=== PATIENT | male | born 1980 | race Caucasian/White ===

== ENCOUNTER 2021-12-31 20:23 | Emergency (ER) | payer BC, OTHER, SELFPAY ==
[2021-12-31 20:24] VITALS: BP 140/93; PULSE 97; RESP 16; TEMP 36.4; O2SAT 100; BMI 39.1
[2021-12-31 21:36] VITALS: BP 142/86; PULSE 81; RESP 16; O2SAT 97
--- NOTE | 2021-12-31 21:46 | ED.RN ---
L hand cleaned with saline and ori hex and then irrigated with NS and left to air dry while awaiting MD.
--- NOTE | 2021-12-31 23:31 | EX.ED.UPPERE ---
HPI History of Present Illness Chief Complaint: Laceration Informant: patient Narrative Narrative: Patient is a 41-year-old male present with laceration to his left third and fourth fingers. Patient is right-hand dominant. He states he was trying to loosen a bolt on a machine using a monkey wrench when his hand slipped and he cut his hand on another tool that was below it. He immediately had bleeding. He denies any other injuries. Denies any numbness, tingling or weakness. This did happen at work and is a Workmen's Compensation case. No other complaints at this time. Is not on any blood thinners. Tetanus Immunization: Unknown [facility] Home Medications NK 12/31/21 [History Last Taken Unknown] Allergy/AdvReac Type Severity Reaction Status Date / Time azithromycin AdvReac Abd Verified 12/31/21 20:26 cramps/diarrhea Social History Smoking Status: Current every day smoker tobacco type: cigarettes ROS ROS ED Constitutional Constitutional ED: Denies chills or fever(s) Eyes Eyes: Denies change in vision Cardiovascular Cardiovascular: Denies chest pain Respiratory/Chest Respiratory/Chest: Denies dyspnea Gastrointestinal Gastrointestinal: Denies vomiting Musculoskeletal Musculoskeletal: Denies myalgias Integumentary Reports Abrasions Neurologic Neurologic: Denies paresthesias or weakness Hematologic/Lymphatic Hematologic/Lymphatic: Denies easy bleeding or easy bruising EXAM Physical Exam Const Vital Signs: 12/31/21 20:24 12/31/21 21:36 Temperature 97.6 F L Temperature Source Temporal Pulse Rate 97 81 Respiratory Rate 16 16 Blood Pressure 140/93 H 142/86 H Blood Pressure Mean 108 104 Pulse Ox 100 97 Oxygen Delivery Method Room Air Nasal Cannula Positive well nourished and well developed General Appearance ED: well developed HEENT normocephalic and atraumatic Eyes PERRL Neck full ROM and supple Chest Wall inspection of chest normal Resp normal respiratory effort Cardio regular rate and regular rhythm Cardio Narrative: 2+ bilateral radial pulses Extremity normal to inspection and full ROM Extremity Narrative: No deformity of any joints or hands. Normal flexion and extension of the fingers Neuro oriented x3, moves all extremities and no sensory deficits noted Sensorium / Orientation: alert Psych mental status grossly normal Skin Skin Narrative: Left 3rd finger- Linear 2 cm full-thickness laceration just distal to the PIP on the dorsal aspect of the finger Left 4th finger-linear 2 cm laceration just distal to the PIP on the dorsal aspect of the left fourth finger MDM MDM MDM Narrative Medical decision making narrative: Patient evaluated for hand injury. Normal flexion and extension I do not suspect he has any tendinous injury. He is neuro vastly intact. I do not think imaging is indicated based on mechanism of injury. Tetanus is updated. Laceration repair performed to the third finger. See procedure note. Dermabond applied to the laceration on the fourth finger as it is superficial and I do not think it requires suturing. It is not over the joint. Patient given now clinic for Workmen's Comp. follow-up and Generalized Wound Care instructions. Procedures Lacerations 3rd finger: Length: 0.79 in Depth: Sub Q Shape: Linear Prep: Sterile Conditions and Chlorhexadine Laceration repair: Digital block, Local and Skin sutures Number of Sutures/Julianne: 3 Suture Information: Ethilon, Simple (2), Horizontal (1) and 4-0 Discharge Plan Triage Chief Complaint: Laceration ED Provider: Magda Reynolds Dx/Rx/DC Orders Clinical Impression: Laceration of left middle finger, Laceration of left ring finger, Need for Tdap vaccination Prescriptions: No Action NK RF: 0 Primary Care Provider: Care Physician,No Primary Referrals: Corporate,Care [GROUP OF PHYSICIANS] - Care Physician,No Primary [Primary Care Provider] - Activity Restrictions/Additional Instructions: Alternate Tylenol and/or ibuprofen for pain. Suture should be removed in 10 days. Please follow-up with the now clinic or with the Workmen's Compensation provider for your company. Disposition Disposition: Home, Self Care Discharge Date/Time: 01/01/22 00:07
[2021-12-31] MEDS: BACITRACIN 15 GM Tube 1 APPLIC TOPICAL (23:57)
[2021-12-31] MEDS: Lidocaine 1% (20 ml mdv) 20 ML Vial INFILT (23:57)
[2021-12-31] MEDS: Diphth,Pertuss(Acell),Tet Vac 0.5 ML Vial IM (23:58)
[2022-01-01 00:06] VITALS: BP 140/88; PULSE 98; O2SAT 99
== END 2022-01-01 00:07 | disposition home or self-care (01) ==
PROVIDERS: Emergency Provider Emergency Medicine; Visit Provider Emergency Medicine
DX: S61.215A Laceration without foreign body of left ring finger without damage to nail, initial encounter (principal); S61.213A Laceration without foreign body of left middle finger without damage to nail, initial encounter; Z23 Encounter for immunization; W22.09XA Striking against other stationary object, initial encounter; Y99.0 Civilian activity done for income or pay; F17.210 Nicotine dependence, cigarettes, uncomplicated
CPT/HCPCS: 12002; 90471; 90715; 99285